=== PATIENT | female | born 1950 | race Caucasian/White ===

== ENCOUNTER 2017-06-22 07:46 | Emergency (ER) | payer OTHER, BC ==
[~2017-06-22] VITALS: Ht 165.1 cm; Wt 64.5 kg
[~2017-06-22 07:46] MED LIST: ACETAMINOPHEN500 MG PO; CARBIDOPA-LEVO1 EAC3 PO; CLONAZEPAM0.5 MG PO; Dulcolax PO; ENDOCET 5-3251 EACH PO; KLONOPIN0.5 M1 PO; KlonoPIN PO; LEXAPRO20 MG PO; Lexapro PO; Milk Of Magnesia,MOM PO; Oscal 500 w/Vitamin PO; Parcopa 25/100 PO; SIMVASTATIN40 M1 PO; SINEMET 25-1001 EACH PO; Senokot S,Pericolace PO; Sinemet 25-100 PO; THERAGRAN1 TABLET PO; ZOCOR40 MG PO; Zocor PO; oxyCODONE PO
[2017-06-22] MEDS ORDERED: KEFLEX500 MG PO (11:33)
[2017-06-22] MEDS ORDERED: NORCO 5/3251 TABLET PO (11:56)
[2017-06-22 11:57] VITALS: BP 134/71
== END 2017-06-22 12:02 | disposition home or self-care (01) ==
LOC: EME 07:46
DX: S63.283A Dislocation of proximal interphalangeal joint of left middle finger, initial encounter (principal); S61.213A Laceration without foreign body of left middle finger without damage to nail, initial encounter; W23.0XXA Caught, crushed, jammed, or pinched between moving objects, initial encounter; E78.5 Hyperlipidemia, unspecified; G20 Parkinson's disease; I44.7 Left bundle-branch block, unspecified
CPT/HCPCS: 73130; 99281; 99284; S0020